=== PATIENT | male | born 1950 | race Caucasian/White ===

== ENCOUNTER 2020-12-12 19:54 | Emergency (ER) | payer OTHER, MEDICARE, SELFPAY ==
--- NOTE | 2020-12-12 19:59 | ECG_ITS ---
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 Measurements Intervals [place] Rate: 78 P: 53 AL: 169 QRS: 22 QRSD: 109 T: 42 QT: 387 QTc: 443 Interpretive Statements SINUS RHYTHM No previous ECG available for comparison Electronically Signed On 12-14-2020 19:13:15 RAILROAD FIRER/FIREMAN by Faye Copeland M.D. [id number]
[2020-12-12 20:03] VITALS: BP 173/101; PULSE 78; RESP 16; TEMP 36.8; O2SAT 98; BMI 29.4
[2020-12-12 20:58] VITALS: BP 199/118; PULSE 73; RESP 18; O2SAT 99
--- NOTE | 2020-12-12 21:04 | CTR_ITS ---
PROCEDURE INFORMATION: Exam: CT Head Without Contrast Exam date and time: 12/12/2020 9:09 PM Age: 70 years old Clinical indication: Pain; Headache; Additional info: SANDERS TECHNIQUE: Imaging protocol: Computed tomography of the head without contrast. Radiation optimization: All CT scans at this facility use at least one of these dose optimization techniques: automated exposure control; mA and/or kV adjustment per patient size (includes targeted exams where dose is matched to clinical indication); or iterative reconstruction. COMPARISON: No relevant prior studies available. RADIATION DOSE METRICS: Total DLP (mGy-cm): 911.49 FINDINGS: Brain: There is volume loss and periventricular low density compatible with chronic small vessel disease changes. There is no acute hemorrhage, edema or mass effect. There are small bifrontal benign hygromas. Cerebral ventricles: No ventriculomegaly. Bones/joints: Unremarkable. No acute fracture. Paranasal sinuses: There is a mucous retention cyst in the sphenoid air cells. Mastoid air cells: Visualized mastoid air cells are well aerated. Soft tissues: Unremarkable. CT/CT head wo con* [id number] IMPRESSION: No acute intracranial abnormality. Radiation Dose CTDIVOL = (mGy): DLP = 911.49 (mGy-cm)
[2020-12-12] MEDS: labetalol 5 mg/mL SDV 20mL 10 MG IVP (21:08)
[2020-12-12 21:11] LABS: Basophils % 0.5 %; Eosinophils # 0.1 10^3/uL (0.0-0.8); Hematocrit 43.8 % (42.0-52.0); Hemoglobin 15.3 g/dL (11.7-16.6); Lymphocytes # 0.9 10^3/uL (0.8-4.8); Lymphocytes % 15.5 %; Mean Corpuscular HGB Conc 34.9 g/dL (30.0-36.0); Mean Corpuscular Hemoglobin 33.7 pg (28.0-34.0); Mean Corpuscular Volume 96.5 fL (80-94); Mean Platelet Volume 9.1 fL (7.4-10.4); Monocytes # 0.6 10^3/uL (0.2-0.9); Monocytes % 10.8 %; Neutrophils # 4.14 10^3/uL (1.8-7.7); Neutrophils % 71.9 %; Nucleated Red Blood Cells % 0 %; Platelet Count 274 10^3/cmm (130-400); Red Blood Count 4.54 10^6/uL (4.1-5.3); Red Cell Distribution Width 11.7 % (12.1-15.1); White Blood Count 5.8 10^3/uL (4.0-10.0)
--- NOTE | 2020-12-12 21:12 | W.ED.GENADLT ---
HPI - General Adult General: Chief complaint: General Medical Stated complaint: ELEVATED BP Time Seen by Provider: 12/12/20 20:54 Source: patient Mode of arrival: ambulatory Limitations: no limitations History of Present Illness: HPI narrative: 70-year-old male has a history of hypertension takes 5 mg of lisinopril daily. States he has had a gradual headache over the last month start checking his blood pressure today and noticed that it was quite high. He is elevated here at 199/118. He denies any chest pain. He states that he is been on 5 mg lisinopril for quite some time. He denies any worsening improving factors. Patient is resting comfortably. Associated symptoms: Reports headache(s); Deny chest pain, dyspnea, nausea, rash or vomiting Review of Systems Const: Denies: fever(s), chills, body aches or change in appetite Eyes: Denies: blurry vision or eye discomfort ENMT: Denies: throat pain or dental pain Card: Denies: chest pain Resp: Denies: dyspnea GI: Denies: abdominal pain, nausea, vomiting or diarrhea : Denies: dysuria Musc: Denies: neck pain or back pain Skin/Breast: Denies: rash Neuro: Reports: headache(s) Psych: Denies: depression Lucio/Lymph: Denies: easy bruising All/Imm: Denies: urticaria Physical Exam Const: COMMON NORMALS: no acute distress, patient oriented x3 and healthy appearing HENMT: COMMON NORMALS: normocephalic and atraumatic HEAD & SCALP: normocephalic and atraumatic Eye: COMMON NORMALS: Equal, round and reactive pupils present and EOMs intact bilaterally PUPIL: Yes Equal, round and reactive pupils present Neck/C-Spine: COMMON NORMALS: full ROM and supple Chest: COMMONS NORMALS: normal inspection of the chest and normal palpation of entire chest wall Resp: COMMON NORMALS: normal respiratory effort, No retractions, No use of accessory muscles and clear to auscultation bilaterally AUSCULTATION: clear to auscultation bilaterally Cardio: COMMON NORMALS: regular rate, regular rhythm and No murmurs present (Cardio) RATE: regular rate RHYTHM: regular rhythm GI: COMMON NORMALS: Normal to inspection, nondistended, normoactive bowel sounds present, Soft to palpation, non-tender and no masses PALPATION: Yes Soft to palpation Extremity: COMMON NORMALS: normal to inspection and full ROM Neuro: COMMON NORMALS: patient oriented x3, moves all extremities and no focal motor deficits Psych: COMMON NORMALS: mental status grossly normal, Normal thought process present and cooperative THOUGHT PROCESS: Normal thought process present Skin: COMMON NORMALS: no rashes or lesions noted and no wounds GENERAL SKIN EXAM: no rashes or lesions noted Course Vital Signs: Vital signs: Vital Signs Temperature 98.2 F 12/12/20 20:03 Pulse Rate 69 12/12/20 21:29 Respiratory Rate 19 H 12/12/20 21:29 Blood Pressure 155/97 12/12/20 21:29 Pulse Oximetry 99 12/12/20 21:29 MDM - General Adult MDM Narrative: Medical decision making narrative: 70-year-old male who presents here with hypertension mild headache as well. His head CT and blood work are all normal. His blood pressure is improving here. We will increase his lisinopril from 5 mg to 10 mg. He is to take a log of his blood pressure and [facility] He is return if worsening. He understands and agrees to the plan. Lab Data: Labs: Lab Results 12/12/20 12/12/20 Range/Units 21:02 21:02 WBC 5.8 (4.0-10.0) 10^3/ uL RBC 4.54 (4.1-5.3) 10^6/u L Hgb 15.3 (11.7-16.6) g/dL Hct 43.8 (42.0-52.0) % MCV 96.5 H (80-94) fL MCH 33.7 (28.0-34.0) pg MCHC 34.9 (30.0-36.0) g/dL RDW 11.7 L (12.1-15.1) % Plt Count 274 (130-400) 10^3/c mm MPV 9.1 (7.4-10.4) fL Neut % (Auto) 71.9 % Lymph % (Auto) 15.5 % Bullock % (Auto) 10.8 % Eos % (Auto) 1.0 % Baso % (Auto) 0.5 % Neut # (Auto) 4.14 (1.8-7.7) 10^3/u L Lymph # (Auto) 0.9 (0.8-4.8) 10^3/u L Bullock # (Auto) 0.6 (0.2-0.9) 10^3/u L Eos # (Auto) 0.1 (0.0-0.8) 10^3/u L Baso # (Auto) 0.0 (0.0-0.1) 10^3/u L Nucleated RBC % (a uto) 0 % Nucleated RBCs # 0.0 /100WBC Sodium 138 (136-145) mmol/L Potassium 3.3 L (3.5-5.1) mmol/L Chloride 104 (98-107) mmol/L Carbon Dioxide 24 (22-29) mmol/L Anion Gap 13.3 (5-19) BUN 9 (8-23) mg/dL Creatinine 0.7 (0.7-1.2) mg/dL GFR Calculation 112.1 (90-130) mL/min Glucose 110 (65-115) mg/dL Calculated Osmolal ity 285 (285-295) mOsm/k g Calcium 8.9 (8.5-10.5) mg/dL Imaging Data^: CT Head: Radiologist's impression: [address] [address] [address] Scan Report Signed Patient: Boni Mark Unit #: [id number] : 1950 Age/Sex: 70 / M ADM Date: 12/12/20 Loc: ER Room/Bed: Attending Dr: Ordering Provider/Ordering MD: Jorge Enriquez MD Date of Service: 12/12/20 Procedure(s): CT head wo con* [id number] Accession Number(s): [id number] Report Number: [id number] PROCEDURE INFORMATION: Exam: CT Head Without Contrast Exam date and time: 12/12/2020 9:09 PM Age: 70 years old Clinical indication: Pain; Headache; Additional info: SANDERS TECHNIQUE: Imaging protocol: Computed tomography of the head without contrast. Radiation optimization: All CT scans at this facility use at least one of these dose optimization techniques: automated exposure control; mA and/or kV adjustment per patient size (includes targeted exams where dose is matched to clinical indication); or iterative reconstruction. COMPARISON: No relevant prior studies available. RADIATION DOSE METRICS: Total DLP (mGy-cm): 911.49 FINDINGS: Brain: There is volume loss and periventricular low density compatible with chronic small vessel disease changes. There is no acute hemorrhage, edema or mass effect. There are small bifrontal benign hygromas. Cerebral ventricles: No ventriculomegaly. Bones/joints: Unremarkable. No acute fracture. Paranasal sinuses: There is a mucous retention cyst in the sphenoid air cells. Mastoid air cells: Visualized mastoid air cells are well aerated. Soft tissues: Unremarkable. CT/CT head wo con* [id number] IMPRESSION: No acute intracranial abnormality. EKG Data^: EKG 1: Attestation: I personally reviewed and interpreted this EKG as follows: EKG interpretation date: 12/12/20 EKG interpretation time: 20:04 Interpretation: nsr hr [address] or t wave abnormalities qrs 109 qtc 421 Computer generated interpretation: Head CT 12/12/20 21:04 IMPRESSION: No acute intracranial abnormality. Radiation Dose CTDIVOL = (mGy): DLP = 911.49 (mGy-cm) Discharge Plan Discharge Patient Disposition: Home Clinical Impression: Hypertension Qualifiers: Hypertension type: essential hypertension Qualified Code(s): I10 - Essential (primary) hypertension Headache Qualifiers: Headache type: unspecified Headache chronicity pattern: unspecified pattern Intractability: not intractable Qualified Code(s): R51.9 - Headache, unspecified Condition: Stable Prescriptions: New lisinopril 10 mg tablet 10 mg PO DAILY Qty: 30 RF: 0 Discharge Orders: Discharge ED (Routine); Ordered 12/12/20 Ordered By: Jorge Enriquez Discharge Diet: Advance as tolerated Discharge Activity: Resume usual activity Patient Instructions: Hypertension (ED) Coding Level of Care Code ED Repairer Handtools for Chg Fwd Exam Comprehensive
[2020-12-12 21:15] VITALS: BP 168/95; PULSE 68; RESP 21; O2SAT 97
[2020-12-12 21:29] VITALS: BP 155/97; PULSE 69; RESP 19; O2SAT 99
[2020-12-12 21:30] LABS: Anion Gap 13.3 (5-19); Blood Urea Nitrogen 9 mg/dL (8-23); Calcium 8.9 mg/dL (8.5-10.5); Carbon Dioxide 24 mmol/L (22-29); Chloride 104 mmol/L (98-107); Glomerular Filtration Rate 112.1 mL/min (90-130); Glucose 110 mg/dL (65-115); Osmolality Calculated 285 mOsm/kg (285-295); Potassium 3.3 mmol/L (3.5-5.1); Sodium 138 mmol/L (136-145)
[2020-12-12 21:58] VITALS: BP 171/91; PULSE 68; RESP 14; O2SAT 97
== END 2020-12-12 22:00 | disposition home or self-care (01) ==
PROVIDERS: Emergency Provider Emergency Medicine
DX: I10 Essential (primary) hypertension (principal); R51.9 Headache, unspecified
CPT/HCPCS: 70450; 80048; 85025; 93005; 96374; 99283; J3490

== ENCOUNTER → 2024-04-20 11:30 | Outpatient (BNVA) | payer OTHER, SELFPAY | PROVIDERS: Referring Provider Family Medicine; Visit Provider Internal Medicine Cardiovascular Disease | DX: R53.83 Other fatigue (principal); I49.1 Atrial premature depolarization; I49.3 Ventricular premature depolarization | CPT/HCPCS: 93242 ==

== ENCOUNTER 2024-04-24 12:56 | Outpatient (CLI) | payer OTHER, SELFPAY ==
--- NOTE | 2024-04-24 13:48 | USCV_ITS ---
Boni Mark Age: 73 Gender: M : 1950 Exam Date: 04/24/2024 14:11 Ordering Phys: Leeanna Dykes MD Technologist: CT Exam Location: [facility] [place]_ Indication: murmur BP: 136 / 83 HR: 88 Rhythm: Sinus Technical Quality: Adequate MEASUREMENTS (Male / Female) Normal Values 2D ECHO LVOT Diameter 2.1 cm LV Ejection Fraction MOD 2C 75.7 % LV Ejection Fraction 2C AL 76.3 % LA Diameter 5.0 cm RA Systolic Volume 4C AL 58.6 ml RA Systolic Volume 4C MOD 58.8 ml LA Sys Volume AL 90.3 cm cubed LA Sys Volume Index AL 43.3 cm cubed/m squared Aorta at Sinotubular Diameter 3.1 cm IVC Diameter 1.6 cm M-MODE LA Ao Ratio MM 2.0 AV Cusp Separation MM 2.3 cm DOPPLER AV Peak Velocity 153.0 cm/s LVOT Peak Velocity 137.0 cm/s AV Area Cont Eq vti 4.1 cm squared AV Area Cont Eq pk 3.3 cm squared MV Peak Velocity 346.7 cm/s MV Area PHT 3.5 cm squared Mitral E to A Ratio 3.7 TV Peak Velocity 223.0 cm/s TR Peak Velocity 300.0 cm/s TR Peak Gradient 36.0 mmHg TV Peak E Velocity 76.0 cm/s Right Atrial Pressure 3.0 mmHg Pulmonary Artery Systolic Pressu 39.0 mmHg PV Peak Velocity 116.5 cm/s FINDINGS Left Ventricle Normal left ventricular size and systolic function, EF 76%. No regional wall motion abnormalities. Grade I/IV diastolic dysfunction (abnormal relaxation filling pattern), normal to mildly elevated filling pressures. Right Ventricle The right ventricle is normal in size and function. Right Atrium The right atrium is normal in size. Left Atrium Moderate to severely increased left atrial size. Left atrial end-systolic volume index was 44 mL/m squared Mitral Valve Moderate to severe prolapse of the posterior leaflet. Possibly severe eccentric mitral regurgitation with the regurgitant jet directed anteriorly Aortic Valve No gross abnormalities noted Tricuspid Valve Trace to mild tricuspid valve regurgitation. Pulmonic Valve Trace pulmonary valve regurgitation. Pericardium No pericardial effusion. Aorta Normal aortic annulus size. IVC Normal inferior vena cava. CONCLUSIONS Possibly severe eccentric mitral regurgitation with the regurgitant jet directed anteriorly. Moderate to severe prolapse of the posterior leaflet. Normal left ventricular size and systolic function, EF 76%. No regional wall motion abnormalities. Grade I/IV diastolic dysfunction (abnormal relaxation filling pattern), normal to mildly elevated filling pressures. Moderate to severely increased left atrial size. Left atrial end-systolic volume index was 44 mL/m squared. Trace to mild tricuspid valve regurgitation. Estimated pulmonary artery peak systolic pressure 39 mmHg There is no pericardial effusion. There are no intracardiac masses. No similar previous studies are available for comparison Dr Faye Copeland MD FACC (Electronically Signed) Final Date: 24 April 2024 23:35 S
== END 2024-04-24 12:57 | disposition home or self-care (01) ==
PROVIDERS: Visit Provider Family Medicine
DX: R42 Dizziness and giddiness (principal); I34.1 Nonrheumatic mitral (valve) prolapse; I50.30 Unspecified diastolic (congestive) heart failure; I51.7 Cardiomegaly
CPT/HCPCS: 93306